=== PATIENT | male | born 1995 | race African-American/Black ===

== ENCOUNTER 2019-12-30 21:37 | Emergency (ER) | payer OTHER ==
[~2019-12-30] VITALS: Ht 180.3 cm; Wt 72.6 kg
[2019-12-30 22:11] LABS: URINE BLOOD NEGATIVE (Negative); URINE CLARITY CLEAR; URINE COLOR YELLOW; URINE GLUCOSE-RANDOM* 3+ (Negative); URINE KETONES NEGATIVE (Negative); URINE LEUKOCYTES-REFLEX NEGATIVE (Negative); URINE NITRITE-REFLEX NEGATIVE (Negative); URINE PROTEIN (DIPSTICK) NEGATIVE (Negative); URINE SPECIFIC GRAVITY 1.015 (1.005-1.035); URINE UROBILINOGEN 0.2 E.U./dl (0.2-1.0)
[2019-12-30 22:14] LABS: HEMATOCRIT 39.2 % (42.0-52.0); MCH 29.8 pg (26.0-34.0); MCHC 33.2 g/dL (28.0-37.0); MCV 89.9 fL (80.0-100.0); PLATELET COUNT 233 thou/uL (150-400); RBC 4.36 mil/uL (4.50-6.00); RDW 14.3 % (10.5-14.5); WBC 3.8 thou/uL (4.0-11.0)
[2019-12-30 22:15] LABS: URINE BILIRUBIN NEGATIVE (Negative)
[2019-12-30 22:25] LABS: ALBUMIN 3.5 g/dL (3.4-5.0); ANION GAP 5 mmol/L (7-16); BUN 18 mg/dL (7-18); CALCIUM 9.6 mg/dL (8.5-10.1); CHLORIDE 92 mmol/L (98-107); CO2 30 mmol/L (21-32); CREATININE 1.1 mg/dL (0.7-1.3); DIRECT BILIRUBIN < 0.1 mg/dL (<0.1-0.2); LIPASE 187 U/L (73-393); POTASSIUM 4.1 mmol/L (3.5-5.1); SGOT 26 U/L (15-37); SGPT 51 U/L (30-65); SODIUM 127 mmol/L (136-145); TOTAL BILIRUBIN 0.4 mg/dL (<0.1-1.0); TOTAL PROTEIN 7.2 g/dL (6.4-8.2)
[2019-12-30 22:27] LABS: GLUCOSE 589 mg/dL (74-106)
[2019-12-30 22:43] LABS: ABSOLUTE NEUTROPHILS 2.3 thou/uL (1.4-8.2); ANISOCYTOSIS 1+
[2019-12-31 02:06] VITALS: BP 120/76
--- NOTE | 2019-12-31 09:58 | EKG ---
[facility] [place] [address] ELECTROCARDIOGRAM REPORT Name: MANNY LAGUNA Room #: DEP [facility]#: [id number] Admission: 12/30/19 Attend Phys: Discharge: 12/31/19 Date of : [birth year] Report #: [id number] THIS REPORT FOR: cc: LEONIDAS - Ade family physician/PCP LEONIDAS - Ade family physician/PCP Qasim Mason MD ~ THIS REPORT FOR: //name// [facility] ED Test Date: 2019-12-30 Test Time: 22:25:58 Pat Name: MANNY LAGUNA Department: Room: Gender: Uniform Cap Operator: [facility] : 1995 Requested By: Order Number: [id number] MD: Qasim Mason Measurements Intervals Thomas Rate: 94 P: 53 VA: 167 QRS: 54 QRSD: 87 T: 35 QT: 338 QTc: 423 Interpretive Statements Sinus rhythm No previous ECG available for comparison Electronically Signed On 12-31-2019 9:57:04 CDT by Qasim Mason [email or web address] <ELECTRONICALLY SIGNED> By: Qasim Mason MD 12/31/19 0957 2225 2225 Qasim Mason MD /EPI
== END 2019-12-31 02:08 | disposition home or self-care (01) ==
LOC: ER 21:37
PROVIDERS: Nurse Practitioner
DX: E11.65 Type 2 diabetes mellitus with hyperglycemia (principal); R41.0 Disorientation, unspecified; R20.2 Paresthesia of skin

== ENCOUNTER 2020-07-25 14:31 | Inpatient (IN) | payer OTHER ==
[~2020-07-25] VITALS: Ht 180.3 cm; Wt 82.6 kg
[2020-07-25] VITALS (10 sets, daily range): BP systolic 115–139; BP diastolic 70–96
[2020-07-25 15:15] LABS: BE(vivo) -29.5 mmol/L (-2 to +3); HCO3 2.7 mmol/L (22.0-26.0); PCO2 VENOUS 14.8 mmHg (41.0-51.0); PO2 VENOUS 64.8 mmHg (35.0-45.0)
[2020-07-25 15:29] LABS: BASOPHILS 0.5 % (0.0-2.0); EOSINOPHILS 0.1 % (0.0-3.0); HEMATOCRIT 49.4 % (42.0-52.0); LYMPHOCYTES 11.5 % (24.0-44.0); MCH 29.7 pg (26.0-34.0); MCHC 32.3 g/dL (28.0-37.0); MCV 91.7 fL (80.0-100.0); MONOCYTES 5.5 % (1.0-8.0); PLATELET COUNT 298 thou/uL (150-400); POLYS 82.4 % (36.0-66.0); RBC 5.39 mil/uL (4.50-6.00); RDW 13.5 % (10.5-14.5)
[2020-07-25 15:37] LABS: ANION GAP 30 mmol/L (7-16); BUN 11 mg/dL (7-18); CALCIUM 8.4 mg/dL (8.5-10.1); CHLORIDE 99 mmol/L (98-107); CREATININE 1.2 mg/dL (0.7-1.3); GLUCOSE 438 mg/dL (74-106); POTASSIUM 3.8 mmol/L (3.5-5.1); SODIUM 134 mmol/L (136-145)
[2020-07-25 15:39] LABS: CO2 < 5 mmol/L (21-32)
[2020-07-25 15:43] LABS: ALBUMIN 3.8 g/dL (3.4-5.0); MAGNESIUM 1.9 mg/dL (1.8-2.4); SGOT 14 U/L (15-37); SGPT 15 U/L (30-65); TOTAL BILIRUBIN 0.5 mg/dL (0.2-1.0); TOTAL PROTEIN 7.7 g/dL (6.4-8.2)
[2020-07-25 16:14] LABS: URINE BILIRUBIN NEGATIVE (Negative); URINE BLOOD TRACE (Negative); URINE CLARITY CLEAR; URINE COLOR YELLOW; URINE GLUCOSE-RANDOM* 2+ (Negative); URINE KETONES 3+ (Negative); URINE LEUKOCYTES-REFLEX NEGATIVE (Negative); URINE NITRITE-REFLEX NEGATIVE (Negative); URINE PROTEIN (DIPSTICK) 1+ (Negative); URINE SPECIFIC GRAVITY >= 1.030 (1.005-1.035); URINE UROBILINOGEN 0.2 E.U./dl (0.2-1.0)
[2020-07-25 16:22] LABS: HYALINE CASTS 0-3 Few /LPF (None Seen); SQUAMOUS 0-3 Few /LPF (0-3); URINE WBC-REFLEX None Seen /HPF (0-5)
[2020-07-25 16:23] LABS: URINE RBC None Seen /HPF (0-2)
[2020-07-25 16:23] LABS: ANION GAP 29 mmol/L (7-16); BUN 12 mg/dL (7-18); CALCIUM 8.1 mg/dL (8.5-10.1); CHLORIDE 99 mmol/L (98-107); CREATININE 1.4 mg/dL (0.7-1.3); GLUCOSE 424 mg/dL (74-106); POTASSIUM 3.4 mmol/L (3.5-5.1); SODIUM 133 mmol/L (136-145)
[2020-07-25 16:24] LABS: BACTERIA-REFLEX None Seen /HPF (None Seen); CRYSTALS None Seen /LPF (None Seen); FINE GRANULAR CASTS 0-3 Few /LPF (None Seen)
[2020-07-25 16:27] LABS: ALBUMIN 3.6 g/dL (3.4-5.0)
[2020-07-25 16:29] LABS: CO2 < 5 mmol/L (21-32)
[2020-07-25 17:39] LABS: TSH 0.944 uIU/mL (0.358-3.740)
--- NOTE | 2020-07-25 17:54 | NUR ---
FIRST ATTEMPT AT REPORT. NURSE STATES "CALL BACK IN A FEW MINS"
[2020-07-25 19:59] LABS: ANION GAP 29 mmol/L (7-16); BUN 13 mg/dL (7-18); CALCIUM 8.4 mg/dL (8.5-10.1); CHLORIDE 102 mmol/L (98-107); CREATININE 1.4 mg/dL (0.7-1.3); GLUCOSE 323 mg/dL (74-106); SODIUM 136 mmol/L (136-145)
[2020-07-25 20:05] LABS: CO2 < 5 mmol/L (21-32)
[2020-07-26] VITALS (20 sets, daily range): BP systolic 90–116; BP diastolic 56–84
[2020-07-26 01:49] LABS: ALBUMIN 3.3 g/dL (3.4-5.0); CALCIUM 8.3 mg/dL (8.5-10.1); CREATININE 1.1 mg/dL (0.7-1.3); MAGNESIUM 1.7 mg/dL (1.8-2.4); PHOSPHORUS 1.4 mg/dL (2.5-4.9); POTASSIUM 3.5 mmol/L (3.5-5.1)
--- NOTE | 2020-07-26 03:16 | NUR ---
ASSUMED CARE OF PATIENT FROM ER. A&O X4. ABLE TO ANSWER ALL ASSESSMENT QUESTIONS. REFUSED TO TAKE OFF PANTS OR SHOES. DKA PROTOCOL INITIATED. SEE FLOW SHEET. POC GOALS ESTABLISHED. WORKING TOWARDS THEM. MOTHER UPDATED AND GIVEN 4 DIGIT CODE.
[2020-07-26 06:32] LABS: ABSOLUTE NEUTROPHILS 7.1 thou/uL (1.4-8.2); BASOPHILS 0.4 % (0.0-2.0); HEMATOCRIT 40.1 % (42.0-52.0); LYMPHOCYTES 7.5 % (24.0-44.0); MCH 29.6 pg (26.0-34.0); MCHC 33.6 g/dL (28.0-37.0); MONOCYTES 10.4 % (1.0-8.0); POLYS 81.7 % (36.0-66.0); RBC 4.56 mil/uL (4.50-6.00); RDW 12.9 % (10.5-14.5); WBC 8.7 thou/uL (4.0-11.0)
[2020-07-26 06:42] LABS: CALCIUM 8.5 mg/dL (8.5-10.1); CREATININE 1.3 mg/dL (0.7-1.3); MAGNESIUM 1.6 mg/dL (1.8-2.4)
[2020-07-26 06:43] LABS: HEMOGLOBIN 13.5 gm/dL (14.0-18.0)
[2020-07-26 06:44] LABS: PLATELET COUNT 211 thou/uL (150-400)
[2020-07-26 07:08] LABS: ESTIMATED AVERAGE GLUCOSE > 398 mg/dL (()); GLYCOHEMOGLOBIN (HGB A1C) > 15.5 % (4.8-5.6)
--- NOTE | 2020-07-26 09:58 | NUR ---
0845 DR SPANN AT PATIENT WINDOW, DISCUSSED PATIENT STATUS. ORDERS RECIEVED AND OKAY FOR PATIENT TO EAT. 0910 SPOKE WITH PATIENT GRANDMA, UPDATED ON STATUS. 1000 PATIENT EATING BREAKFAST. DENIES NAUSEA AT THIS TIME.
[2020-07-26 10:53] LABS: CALCIUM 8.7 mg/dL (8.5-10.1)
[2020-07-26 10:57] LABS: ALBUMIN 3.3 g/dL (3.4-5.0); MAGNESIUM 1.6 mg/dL (1.8-2.4); PHOSPHORUS 1.1 mg/dL (2.5-4.9)
--- NOTE | 2020-07-26 11:35 | NUR ---
rhonda unable to visit with francis. rhonda spoke with bedside nurse to get pt cell # or have francis call rhonda. will cont following as needed for dc needs. rhonda noted per chart that he ran out of his diabetic medication. he is on insulin drip at this time.
[2020-07-26 13:56] LABS: AMP/METHAMP Negative (Negative); BARBITURATES Negative (Negative); BENZODIAZEPINES Negative (Negative); COCAINE Negative (Negative); METHADONE Negative (Negative); OPIATES Negative (Negative); PCP Negative (Negative)
[2020-07-26 17:24] LABS: CALCIUM 8.5 mg/dL (8.5-10.1); CREATININE 0.9 mg/dL (0.7-1.3); POTASSIUM 3.1 mmol/L (3.5-5.1)
[2020-07-26 17:28] LABS: ALBUMIN 2.9 g/dL (3.4-5.0); MAGNESIUM 1.7 mg/dL (1.8-2.4); PHOSPHORUS 1.4 mg/dL (2.5-4.9)
[2020-07-27 05:16] LABS: ALBUMIN 2.8 g/dL (3.4-5.0); CALCIUM 8.5 mg/dL (8.5-10.1); CREATININE 0.8 mg/dL (0.7-1.3); TOTAL BILIRUBIN 0.4 mg/dL (0.2-1.0); TOTAL PROTEIN 5.9 g/dL (6.4-8.2)
[2020-07-27 05:32] LABS: ABSOLUTE NEUTROPHILS 3.2 thou/uL (1.4-8.2); BASOPHILS 0.9 % (0.0-2.0); EOSINOPHILS 1.6 % (0.0-3.0); HEMATOCRIT 36.1 % (42.0-52.0); HEMOGLOBIN 12.2 gm/dL (14.0-18.0); LYMPHOCYTES 33.3 % (24.0-44.0); MCH 29.2 pg (26.0-34.0); MCHC 33.8 g/dL (28.0-37.0); MCV 86.3 fL (80.0-100.0); MONOCYTES 8.4 % (1.0-8.0); PLATELET COUNT 182 thou/uL (150-400); POLYS 55.8 % (36.0-66.0); RBC 4.18 mil/uL (4.50-6.00); WBC 5.8 thou/uL (4.0-11.0)
[2020-07-27 05:36] LABS: POTASSIUM 2.9 mmol/L (3.5-5.1)
--- NOTE | 2020-07-27 05:54 | NUR ---
TRANSFERED TO THE UNIT FROM ICU. PT IS A/O X4 AND UP AD YOUSIF. DENIES ANY PAIN OR DISCOMFORT. NO SLIDING SCALE INSULIN GIVEN WAS NOT INDICATED. PT CURRENTLY ON ELECTROLYTE PROTOCOL. CRITICAL POTASSIUM LAB RESULT GIVEN BY LAB THIS AM. PROVIDED PT WITH POTASSIUM DIRECTED PER DEC. AT THIS TIME, PT IS CURRENTLY LYING IN BED AND APPEARS TO BE SLEEPING. WILL CONTINUE TO MONITOR.
--- NOTE | 2020-07-27 10:30 | HC ---
[facility] [place] [address] CONSULTATION Name: MANNY LAGUNA Room #: 461-P ADM IN M.R.#: [id number] Admission: 07/25/20 Attend Phys: August Newton MD Discharge: Date of : [birth year] Report #: [id number] THIS REPORT FOR: cc: LEONIDAS Booker family physician/PCP LEONIDAS Booker family physician/PCP Liliya Shetty MD ~ DATE OF SERVICE: 07/26/2020 ENDOCRINE CONSULTATION NOTE CONSULTING PHYSICIAN: Dr. Newton. REASON FOR CONSULTATION: DKA, uncontrolled diabetes mellitus. HISTORY OF PRESENT ILLNESS: This is a 24-year-old male patient whose medical background is significant for asthma and so-called type 2 diabetes mellitus. The patient presented with symptoms of progressive tiredness, fatigue, shortness of breath as well as headaches and on arrival, was found to have metabolic changes consistent with DKA. Subsequently, the patient was started on IV insulin therapy and admitted to the ICU for further care and monitoring. The patient has had issues with type 2 diabetes mellitus for a few years and has been maintained on a combination of Janumet and glipizide, which he seems to have run out recently. There are not many blood glucose readings done lately to ascertain his level of control. He is not aware of issues pertaining to diabetic retinopathy, nephropathy or neuropathy. REVIEW OF SYSTEMS: CONSTITUTIONAL: Fatigue, tiredness, but not fever or chills or body weight changes. HEENT: Negative for sore throat, sinus pain or ear drainage. PULMONARY: Shortness of breath and intermittent cough, but no hemoptysis. CARDIAC: Negative for chest pain, syncope or presyncope. GASTROINTESTINAL: Noted for abdominal discomfort, nausea, but no vomiting. NEUROLOGY: Negative for loss of consciousness, severe frequent headaches or seizure activity. Otherwise, review of systems noncontributory other than those mentioned in HPI. PAST MEDICAL HISTORY: 1. Type 2 diabetes mellitus. 2. Asthma. OUTPATIENT MEDICATIONS: Include; 1. Janumet mg twice a day. 2. Glipizide. [facility] [address] [place] [address] CONSULTATION Name: MANNY LAGUNA Room #: 461-P [facility] IN M.R.#: [id number] Admission: 07/25/20 Attend Phys: August Newton MD Discharge: Date of : [birth year] Report #: [id number] ALLERGIES: No known drug allergies. FAMILY HISTORY: Noncontributory. SOCIAL HISTORY: The patient denies the use of tobacco, alcohol or illicit drugs. PHYSICAL EXAMINATION: GENERAL: I did not enter the exam room due to the lack of immediate availability of protective personal equipment. I have discussed this case at length with nursing staff and reviewed his medical records as well as his vital signs and flow sheets. VITAL SIGNS: Blood pressure is 93/60 mmHg, heart rate is 108 beats per minute, respirations 14 per minute, temperature 36.7 degrees Celsius. CONSTITUTIONAL: The patient is sitting upright in bed, appears relatively comfortable, not in pain or distress. HEENT: Anicteric sclerae. NECK: Appears supple with a full range of motion. CHEST: Inspection is noted for normal breath rate with symmetrical chest wall movement. EXTREMITIES: Lower extremities, no apparent edema. NEUROLOGIC: Awake, alert, moving all limbs spontaneously. PSYCH: Interactive ____. The patient was inspected through the glass door and glass window of his ICU room. LABORATORY DATA: Blood glucose values on arrival where at 460 mg/dL, but have consistently been under 180 mg/dL for the past several hours. Sodium 137, potassium 3.0, chloride 107, CO2 of 15, anion gap on arrival was 30 now at 15, BUN 16, creatinine 1.3, AST 14, lipase 187, total bilirubin 0.5, calcium 8.5, phosphorus 1.4, magnesium 1.6, alkaline phosphatase 102, ALT is 15, total protein 7.7, albumin 3.3, EGFR 81. White blood count 8.7, hemoglobin 13.5, hematocrit 40.1, platelets 211. TSH 0.944. Hemoglobin A1c is greater than 15.5. COVID-19 testing was negative, so far. ASSESSMENT AND PLAN: 1. Diabetic ketoacidosis. The patient presented with metabolic changes and clinical outlook that are consistent with diabetic ketoacidosis. It is worth mentioning that he was admitted for diabetic ketoacidosis episode in December of this year to [facility]. This outlook is a rather suggestive of type 1 diabetes, outlook rather than type 2, especially given his young age and normal weight status. [address] [address] CONSULTATION Name: MANNY LAGUNA Room #: 461-P ADM IN M.R.#: [id number] Admission: 07/25/20 Attend Phys: August Newton MD Discharge: Date of : [birth year] Report #: [id number] The patient was managed successfully with IV insulin as per the [facility] protocol. He has since closed his anion gap and normalized his blood glucose control. Given this outlook, the patient will be converted to a subcutaneous insulin therapy. His current insulin needs averaged about 6 units per hour. I will convert him to a combination of Lantus insulin 45 units daily in addition to Humalog 12 units with meals and support with Humalog low intensity to be given as needed a.c. and at bedtime. Blood glucose monitoring can commence a.c. and at bedtime once his IV insulin therapy is discontinued 2-3 hours after the first Lantus injection. 2. Diabetes mellitus. Although the patient has a label of type 2 diabetes mellitus and has been maintained on oral antidiabetic therapy. His hemoglobin A1c was above the upper limit of detection of 15.5%. He has had two documented diabetic ketoacidosis episodes over the past 6 months. This collectively points in the direction of significant insulin deficiency and likely type 1 diabetes state. This will have future implications and the sense that the patient will need to be maintained on insulin therapy long-term as opposed to oral therapy. As noted above, I will start with a combination of 45 units of Lantus daily and Humalog 12 units t.i.d. a.c. in addition to Humalog supplemental scale low intensity. As the patient stabilizes his clinical state, I suspect that his insulin needs will diminish progressively. I certainly appreciate this consultation by Dr. Newton. <ELECTRONICALLY SIGNED> By: Liliya Shetty MD 07/27/20 1030 1021 1223 Liliya Shetty MD /nt
--- NOTE | 2020-07-27 12:12 | NUR ---
CARE TEAM INDICATED THAT PT WOULD LIKELY BE MEDICALLY STABLE TO DISCHARGE HOME TOMORROW Thursday07/28/20. PT WILL NEED MEDICATIONS VOUCHERED. CM AWAITING PRINTED SCRIPTS TO VOUCHER MEDS FOR PT TO TAKE WITH HIM UPON DC.
[2020-07-27] MEDS ORDERED: NOVOLOG100 UNIT/1 SUBQ (14:21)
[2020-07-27] MEDS ORDERED: LANTUS100 UNIT/M SUBQ (14:21)
[2020-07-27] MEDS ORDERED: HUMALOG100 UNIT/1 SUBQ (14:21)
[2020-07-27 17:35] VITALS: BP 102/67
--- NOTE | 2020-07-27 20:34 | NUR ---
PT A&OX4, VSS, NO PAIN. TOLERATING DIET, ACHS, NO SIGNS OF DISTRESS. INSULIN IN PATIENT FRIDGE FOR PATIENT TO TAKE. NO SIGNS OF DISTRESS. WILL CONTINUE TO MONITOR.
[2020-07-28 05:47] LABS: MCH 30.2 pg (26.0-34.0); MCHC 35.3 g/dL (28.0-37.0); MCV 85.5 fL (80.0-100.0); RBC 3.98 mil/uL (4.50-6.00); RDW 13.1 % (10.5-14.5); WBC 3.6 thou/uL (4.0-11.0)
[2020-07-28 05:58] LABS: CALCIUM 8.2 mg/dL (8.5-10.1); CREATININE 0.8 mg/dL (0.7-1.3)
[2020-07-28 08:43] VITALS: BP 103/71
[2020-07-28 09:56] VITALS: BP 103/71
--- NOTE | 2020-07-28 10:28 | NUR ---
PT CARE ASSUMED AT 0700. A&Ox4. MEDICATION STORED IN MED FRIDGE GIVEN TO PT. INSULIN EDUCATION GIVEN WITH NO FURTHER QUESTIONS FROM PATIENT. IV REMOVED. PT DISCHARGED WITH FAMILY.
== END 2020-07-28 10:30 | disposition home or self-care (01) | DRG 639 ==
LOC: ER 14:31 → EROBS 16:21 → ICU 19:00 → 4W 07-26 20:35
PROVIDERS: Internal Medicine; Nurse Practitioner; Nurse Practitioner Family; Physician Assistant; ADMIT Hospitalist; ATTEND Hospitalist
DX: E11.10 Type 2 diabetes mellitus with ketoacidosis without coma (principal); J45.909 Unspecified asthma, uncomplicated; Z20.828 Contact with and (suspected) exposure to other viral communicable diseases; Z23 Encounter for immunization; Z79.899 Other long term (current) drug therapy
CPT/HCPCS: 10047; 10078